=== PATIENT | male | born 1955 | race Asian ===

== ENCOUNTER 2017-01-14 17:03 | Emergency (ER) | payer OTHER ==
[~2017-01-14] VITALS: Ht 175.3 cm; Wt 75.0 kg
[~2017-01-14 17:03] MED LIST: BACTDS PO; CEPH-443 PO
[2017-01-14 17:08] VITALS: Ht 175.3 cm; Wt 75.0 kg
--- NOTE | 2017-01-14 18:28 | ERD ---
ER Documentation Chief Complaint Date/Time DATE: 01/14/17 TIME: 18:25 Chief Complaint WOUND ON LEFT 5TH FINGER X1 WK, WHOLE HAND SWOLLEN AND RED HPI Patient is a 61-year-old male with history of hypertension who presents with 5 days of a sore to his left pinky finger. Gradual onset, progressive, associated with progressive swelling of the dorsum of the hand and last few centimeters of the distal wrist. Denies fever, denies trauma. Patient does report small amount of drainage of pus. Patient denies prior evaluation for this condition. ROS All systems reviewed and are negative except as per history of present illness. Medications Home Meds Active Scripts Tramadol HCl (Tramadol HCl) 50 Mg Tablet, 50 MG PO Q8H Y for PAIN, #20 TAB Prov:GENOVEVA PEREZ MD 01/14/17 Cephalexin* (Keflex*) 500 Mg Capsule, 500 MG PO QID for 10 Days, CAP Prov:GENOVEVA PEREZ MD 01/14/17 Sulfamethoxazole-Trimethoprim* (Bactrim* DS) 800-160 Mg Tab, 1 TAB PO BID for 10 Days, TAB Prov:GENOVEVA PEREZ MD 01/14/17 Cephalexin* (Keflex*) 500 Mg Capsule, 500 MG PO QID for 7 Days, CAP Prov:ROCHELLE SCHWARTZ PA-C 03/30/16 Sulfamethoxazole-Trimethoprim* (Bactrim* DS) 800-160 Mg Tab, 1 TAB PO BID for 7 Days, TAB Prov:ROCHELLE SCHWARTZ PA-C 03/30/16 Allergies Allergies: Coded Allergies: No Known Allergy (Unverified , 01/14/17) PMhx/Soc Past medical history: Hypertension Past surgical history: Denies Social history: Denies alcohol or tobacco History of Surgery: No Anesthesia Reaction: No Hx Neurological Disorder: No Hx Respiratory Disorders: No Hx Cardiac Disorders: Yes (htn, hyperlipidemia) Hx Psychiatric Problems: No 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 Moist mucous membranes Resp: Clear to auscultation bilaterally, no wheezes, no rales Cardio: Regular rate and rhythm, no murmurs Abd: Soft, non tender, non distended. Skin: No petechiae or rashes Back: No midline or flank tenderness Ext: Left pinky finger with lesion over the dorsal proximal phalanx, with small amount of purulent drainage, with skin breakage. Erythema and mild edema extending to the last 2 cm of the dorsal wrist. Able to flex and extend finger without difficulty. 2 second cap refill. Sensation intact. No lymphangitic streaking. Neur: Awake and alert, cranial nerves II through XII intact bilaterally, strength and sensation full in 4 extremities. Psych: Normal Mood and Affect Result Diagram: 01/14/171835 Results 24 hrs Laboratory Tests Test 01/14/17 18:36 01/14/17 18:55 Glucose Level 98mg/dl Bedside Glucose 95mg/dL Current Medications Medications (Trade) Dose Ordered Sig/Amelia Route PRN Reason Start Time Stop Time Status Last Admin Dose Admin Trimethoprim/ Sulfamethoxazole (Bactrim (Ds)) 1 tab ONCE ONCE PO 01/14/17 18:30 01/14/17 18:31 DC 01/14/17 18:33 Cephalexin (Keflex) 500 mg ONCE ONCE PO 01/14/17 18:30 01/14/17 18:31 DC 01/14/17 18:32 Procedures/MDM MDM: Patient is a 61-year-old male who presents with 5 days of infection to left hand originating on the pinky finger. Appearance of lesion on the finger is consistent with MRSA. A small amount of pus was expressed from the wound. There are no signs of necrotizing infection, deep space infection, tendon involvement. Patient's glucose is 95. There are no signs of sepsis. There is however a mild cellulitis to the dorsum of the hand extending to the distal wrist. Given the time course of infection and stable vital signs, I believe the patient can be appropriately treated as an outpatient. I did discuss with the patient and his daughter the need for close observation and return precautions for any further worsening. I have advised him to follow-up with a PMD or return to the ER for reevaluation within 48 hours. Patient will be treated with Bactrim and Keflex. I will give tramadol for pain. He does not appear to be an abscess in need of drainage at this time. Patient is neurovascularly intact. Departure Diagnosis: Primary Impression: Abscess of finger of left hand Additional Impression: Cellulitis of hand, left Condition: Stable GENOVEVA PEREZ MD Jan 14, 2017 18:28
[2017-01-14] MEDS ORDERED: TRIMETHOPRIM/SULFAMETHOX (DS) TAB PO ONE (18:30)
[2017-01-14] MEDS ORDERED: CEPHALEXIN 500 MG CAP PO ONE (18:30)
[2017-01-14] MEDS ORDERED: TRAM50TA2 PO (19:05)
[2017-01-14] MEDS ORDERED: CEPH-443 PO (19:05)
[2017-01-14] MEDS ORDERED: BACTDS PO (19:05)
== END 2017-01-14 19:36 | disposition home or self-care (01) ==
LOC: FTE 17:03
DX: L02.512 Cutaneous abscess of left hand (principal); L03.114 Cellulitis of left upper limb; I10 Essential (primary) hypertension; E11.9 Type 2 diabetes mellitus without complications
CPT/HCPCS: 36415; 82947; 82962; Z7502; Z7610; 99284